=== PATIENT | female | born 1955 | race Caucasian/White ===

== ENCOUNTER 2020-12-27 10:22 | Inpatient (IN) ==
[2020-12-27] MEDS ORDERED: LACTATED RINGERS 1,000 ML IV SCH (12:00)
[2020-12-27] MEDS ORDERED: LIDOCAINE 1%/EPI INJ 20 ML VIAL ONE (12:11)
[2020-12-27] MEDS ORDERED: CHLORHEXIDINE 0.12% ORAL RINSE 60 ML BOTTLE SWISH/SPIT ONE (12:11)
[2020-12-27] MEDS ORDERED: LIDOCAINE 2% 5 ML VIAL ONE (12:16)
[2020-12-27] MEDS ORDERED: fentaNYL 100 MCG/2 ML VIAL ONE (12:16)
[2020-12-27] MEDS ORDERED: MIDAZOLAM 2 MG/2 ML VIAL ONE (12:16)
[2020-12-27] MEDS ORDERED: propofoL 200 MG/20 ML VIAL IV ONE (12:16)
[2020-12-27] MEDS ORDERED: SUCCINYLCHOLINE 200 MG/10 ML VIAL ONE (12:16)
[2020-12-27] MEDS ORDERED: ROCURONIUM 50 MG/5 ML VIAL IV ONE (12:16)
[2020-12-27] MEDS ORDERED: DEXAMETHASONE 4 MG/1 ML VIAL ONE ×3 (12:31)
[2020-12-27] MEDS ORDERED: ONDANSETRON 4 MG/2 ML VIAL ONE ×2 (12:48→13:19)
[2020-12-27] MEDS ORDERED: SEVOFLURANE 1 UNIT/15 MINUTE INH ONE ×2 (12:49→13:15)
[2020-12-27] MEDS ORDERED: PHENYLEPHRINE 1 MG/10 ML SYRINGE IV ONE (12:56)
[2020-12-27] MEDS ORDERED: HYDROmorphone 2 MG/1 ML VIAL ONE (13:19)
[2020-12-27] MEDS ORDERED: hydrALAZINE 20 MG/1 ML VIAL ONE (13:19)
[2020-12-27] MEDS: HYDROmorphone 2 MG/1 ML VIAL IV PRN ×3 (13:23→13:43)
[2020-12-27] MEDS ORDERED: hydrALAZINE 20 MG/1 ML VIAL IV ONE (13:25)
[2020-12-27] MEDS ORDERED: ONDANSETRON 4 MG/2 ML VIAL IV PRN ×2 (13:25→14:33)
[2020-12-27] MEDS: CLINDAMYCIN INJ 600 MG/50 ML PREMIX IV SCH ×3 (13:26→23:08)
[2020-12-27] MEDS ORDERED: MEPERIDINE 25 MG/1 ML VIAL ONE (13:49)
[2020-12-27] MEDS ORDERED: MEPERIDINE 25 MG/1 ML VIAL IV PRN (13:52)
[2020-12-27] MEDS ORDERED: KETOROLAC 15 MG/1 ML VIAL IV PRN (14:33)
[2020-12-27] MEDS: CHLORHEXIDINE 0.12% ORAL RINSE 60 ML BOTTLE SWISH/SPIT SCH (20:50)
[2020-12-27] MEDS: oxyCODONE/ACETAMINOPHEN 5-325 MG TABLET PO PRN (20:51)
[2020-12-28] MEDS: CLINDAMYCIN INJ 600 MG/50 ML PREMIX IV SCH ×3 (05:42→17:34)
[2020-12-28] MEDS: oxyCODONE/ACETAMINOPHEN 5-325 MG TABLET PO PRN ×3 (05:42→19:43)
[2020-12-28] MEDS: CHLORHEXIDINE 0.12% ORAL RINSE 60 ML BOTTLE SWISH/SPIT SCH ×2 (09:49→21:46)
[2020-12-29] MEDS: CLINDAMYCIN INJ 600 MG/50 ML PREMIX IV SCH ×2 (00:12→05:38)
[2020-12-29] MEDS: oxyCODONE/ACETAMINOPHEN 5-325 MG TABLET PO PRN (03:55)
[2020-12-29 07:40] VITALS: BP 133/78
[2020-12-29] MEDS: CHLORHEXIDINE 0.12% ORAL RINSE 60 ML BOTTLE SWISH/SPIT SCH (09:09)
== END 2020-12-29 09:20 | disposition home or self-care (01) | DRG 138 ==
LOC: N.OR 10:22 → N.SDSINP 10:39 → N.3E 14:24
PROVIDERS: ADMIT Dentist Oral and Maxillofacial Surgery; ATTEND Dentist Oral and Maxillofacial Surgery